=== PATIENT | female | born 1985 | race Caucasian/White ===

== ENCOUNTER 2021-12-09 11:31 | Outpatient (CLI) | payer BC ==
--- NOTE | 2021-12-10 10:16 | Mammography Report ---
BILATERAL DIGITAL SCREENING MAMMOGRAM 3D/2D: 12/09/2021 CLINICAL: Family history of breast cancer. Baseline exam. Routine screening. No prior exams were available for comparison. Both breasts are heterogeneously dense, which may obscure small masses (category c / 51-75% glandula r tissue). No significant masses, calcifications, or other findings are seen in either breast. IMPRESSION: BENIGN Breast MRI screening is recommended for this patient at elevated lifetime risk. There is no mammographic evidence of malignancy. A 1 year screening mammogram is recommended. Based on Tyrer-Cuzick model (a risk assessment model), the patient's lifetime risk is 30.6% and her 1 0 year risk is 3.4%. If a patient has an elevated risk, a more comprehensive evaluation should be con sidered and/or a referral to a genetic counselor. The [employer], [employer], and NCCN Guidelines advise the consideration of Breast MRI as an adjunct to screening mammog lisa in patients whose "Lifetime risk to develop breast cancer" is 20% or higher. This exam was interpreted at Station ID: [id number]. NOTE: For mammograms, a report in lay terms will be sent to the patient. Approximately 15% of breast malignancies will not be visualized mammographically. In the management of a palpable breast mass, a negative mammogram must not discourage biopsy of a clinically suspicious lesion. Electronically Signed By: Clifford witt/laron:12/09/2021 13:11:00 ACR BI-RADS Category 2: Benign Finding(s) 3342F PARENCHYMAL PATTERN: (D) - The breast(s) demonstrate(s) heterogeneously dense fibroglandular parenchy ma. BI-RADS CATEGORY: (2) - 2 RECOMMENDATION: (ANNUAL) - Recommend routine annual screening mammography. [id number] 1 year screening LATERALITY: (B)
== END 2021-12-09 11:32 | disposition home or self-care (01) ==
LOC: DI.N 11:31
PROVIDERS: ATTEND Nurse Practitioner Family
DX: Z12.31 Encounter for screening mammogram for malignant neoplasm of breast (principal); Z80.3 Family history of malignant neoplasm of breast

== ENCOUNTER 2022-06-17 08:00 | Outpatient (CLI) | payer BC ==
[2022-06-17 15:54] LABS: BILIRUBIN,URINE NEGATIVE (NEGATIVE); GLUCOSE, URINE (UA) NEGATIVE (NEGATIVE); KETONES,URINE (UA) NEGATIVE (NEGATIVE); LEUKOCYTE ESTERASE, URINE NEGATIVE (NEGATIVE); NITRITE,URINE NEGATIVE (NEGATIVE); OCCULT BLOOD,URINE NEGATIVE (NEGATIVE); PROTEIN,URINE NEGATIVE (NEGATIVE); UROBILINOGEN,URINE 0.2 (NORMAL) E.U./dL (NORMAL)
[2022-06-17 15:57] LABS: CLARITY,URINE CLEAR (CLEAR)
[2022-06-17 16:03] LABS: BACTERIA,URINE Rare /HPF (None Seen); RBC,URINE 0-5 /HPF (0-5); SQUAMOUS EPITHELIAL CELL,UR MOD Squamous (<= Few); WBC,URINE 0-3 /HPF (0-5)
== END 2022-06-17 23:59 | disposition home or self-care (01) ==
LOC: LAB.WC 08:00
PROVIDERS: ATTEND Obstetrics & Gynecology
DX: Z32.01 Encounter for pregnancy test, result positive (principal)
CPT/HCPCS: 81001; 87086

== ENCOUNTER 2022-07-06 12:27 | Outpatient (CLI) | payer BC ==
[2022-07-06 13:09] LABS: BASOPHILS % (AUTO) 0.3 %; EOSINOPHILS % (AUTO) 0.3 %; HCT - HEMATOCRIT 38.9 % (37.0-47.0); HGB - HEMOGLOBIN 13.3 g/dL (12.0-16.0); LYMPHOCYTES # (AUTO) 1.9 10^3/uL (1.5-3.5); LYMPHOCYTES % (AUTO) 20.7 %; MEAN CORPUSCULAR HEMOGLOBIN 29.7 pg (27.0-31.0); MEAN CORPUSCULAR HGB CONC 34.2 g/dL (32.0-36.0); MEAN CORPUSCULAR VOLUME 86.8 fL (81.0-99.0); MEAN PLATELET VOLUME 9.5 fL (7.9-10.8); MONOCYTES # (AUTO) 0.3 10^3/uL (0.0-1.0); MONOCYTES % (AUTO) 3.5 %; NEUTROPHILS # (AUTO) 6.7 10^3/uL (1.5-6.6); NEUTROPHILS % (AUTO) 75.1 %; PLT - PLATELET COUNT 286 10^3/uL (130-450); RED BLOOD COUNT 4.48 10^6/uL (4.20-5.40); RED CELL DISTRIBUTION WIDTH 11.9 % (12.0-15.0); WHITE BLOOD COUNT 8.9 x10^3/uL (4.8-10.8)
--- NOTE | 2022-07-06 19:34 | Ultrasound Report ---
PROCEDURE: OB First Trimester w/TV INDICATIONS: POSITIVE TEST OUTSIDE/PRIOR DATING DATA: Last menstrual period (LMP): 05/06/2022. LMP-based estimated date of delivery (FABIEN): 02/10/2023. First dating scan (date and location): 07/06/2022. Estimated date of delivery (FABIEN) from first dating scan: 02/07/2023. TECHNIQUE: Real-time scanning was performed of the fetus and maternal pelvic organs, with image documentation. Endovaginal scanning was also performed to better visualize the fetus and maternal ovaries. COMPARISON: None FINDINGS: Single living intrauterine . Embryo: Java-rump length of 2.4 cm corresponding to gestational age of 9 weeks 1 day. Heart rate: 176 bpm Measurement variability in dating: +/- 4 weeks by LMP, +/- 7 days by mean sac diameter (use before 6 weeks gestation if crown-rump length not able to be measured), +/- 5 days by crown-rump length (6-12 weeks gestation). Maternal organs: Ovaries are unremarkable. Left corpus luteum. A 3.8 cm fibroid is present at the ut erine fundus. IMPRESSION: Single living intrauterine with gestational age of 9 weeks 1 day by crown-rump length, conc ordant with clinical dates. Reviewed by: Manuel Lizama MD on 07/06/2022 7:33 PM PDT Approved by: Manuel Lizama MD on 07/06/2022 7:33 PM PDT Station ID: [id number]
[2022-07-07 07:10] LABS: RPR Non Reactive (Non Reactive)
[2022-07-07 08:10] LABS: HBsAG SCREEN Negative (Negative)
[2022-07-07 09:09] LABS: HCV AB Non Reactive (Non Reactive); HIV SCREEN 4TH GENERATION Non Reactive (Non Reactive)
[2022-07-07 11:10] LABS: VARICELLA-ZOSTER AB IGG 1786 index (Immune >165)
== END 2022-07-06 12:28 | disposition home or self-care (01) ==
LOC: DI 12:27
PROVIDERS: ATTEND Obstetrics & Gynecology
DX: Z36.89 Encounter for other specified antenatal screening (principal)
CPT/HCPCS: 36415; 85025; 86592; 86762; 86787; 86803; 86850; 86900; 86901; 87340; 87389

== ENCOUNTER 2022-07-22 08:00 | Outpatient (CLI) | payer BC ==
[2022-07-23 00:13] LABS: CHLAMYDIA TRACHOMATIS DNA NEGATIVE (NEGATIVE); NEISSERIA GONORRHOEAE DNA NEGATIVE (NEGATIVE); TRICHOMONAS VAGINALIS DNA NEGATIVE (NEGATIVE)
== END 2022-07-22 23:59 | disposition home or self-care (01) ==
LOC: LAB.WC 08:00
PROVIDERS: ATTEND Obstetrics & Gynecology
DX: Z11.3 Encounter for screening for infections with a predominantly sexual mode of transmission (principal)
CPT/HCPCS: 87491; 87591; 87661

== ENCOUNTER 2022-07-22 12:48 | Outpatient (CLI) | payer BC ==
[2022-07-22 13:15] LABS: CREATININE,URINE 120.2 mg/dL; PROTEIN/CREATININE RATIO,URINE 0.1 (<=0.2)
[2022-07-22 13:18] LABS: ALBUMIN/GLOBULIN RATIO 1.4 (1.0-2.2); BILIRUBIN,TOTAL 0.6 mg/dL (0.2-1.0); CALCIUM 9.1 mg/dL (8.5-10.3); CREATININE 0.4 mg/dL (0.4-1.0); POTASSIUM 3.9 mmol/L (3.5-5.0); TOTAL PROTEIN 6.9 g/dL (6.7-8.2); URIC ACID 3.1 mg/dL (2.6-7.2)
[2022-07-22 21:05] LABS: ESTIMATED AVERAGE GLUCOSE 94 mg/dL (70-100); HEMOGLOBIN A1c% 4.9 % (4.27-6.07)
== END 2022-07-22 12:49 | disposition home or self-care (01) ==
LOC: LAB 12:48
PROVIDERS: ATTEND Obstetrics & Gynecology
DX: O09.511 Supervision of elderly primigravida, first trimester (principal); Z87.59 Personal history of other complications of pregnancy, childbirth and the puerperium; Z86.32 Personal history of gestational diabetes
CPT/HCPCS: 36415; 80053; 82570; 83036; 84156; 84550

== ENCOUNTER 2022-09-21 08:51 | Outpatient (CLI) | payer BC ==
--- NOTE | 2022-09-22 13:04 | Ultrasound Report ---
PROCEDURE: OB Detailed Eval INDICATIONS: SUPERVISION OF OUTSIDE/PRIOR DATING DATA: Last menstrual period (LMP): 05/06/2022. LMP-based estimated date of delivery (FABIEN): 03/09/2023. First dating scan (date and location): 07/06/2022 at [facility]. Estimated date of delivery (FABIEN) from first dating scan: 02/07/2023 . The below data below was generated using the FABIEN of 02/10/2023 TECHNIQUE: Real-time scanning was performed of the fetus, with image documentation and biometric measurements. COMPARISON: None. FINDINGS: General: A single living intrauterine gestation is present. Presentation: Variable Placenta: Placental position is posterior, without previa. Amniotic fluid index: 13.6 cm; largest pocket 3.4 cm. heart rate: 150 beats per minute. Maternal cervical canal: Closed; 4.7 cm long; normal length is 2.5 cm or more. biometrics: Biparietal diameter: 19 weeks 1 day Head circumference: 19 weeks 3 days Abdominal circumference: 20 weeks 2 days Femur length: 20 weeks 0 day Estimated gestational age from initial scan: 19 weeks 5 days Composite gestational age from present scan: 19 weeks 4 days Estimated weight and percentile: 328.9 g; 65.4% Measurement variability in biometric dating: +/- 10 days from 12-20 weeks gestation, +/- 2 weeks from 20-30 weeks gestation, +/- 3 weeks at 30 weeks gestation or later. Anatomic survey: Neuro: Ventricles are normal at less than 10 mm. Cisterna magna is normal at 3-11 mm. Cerebellum i s normal in size and morphology. Nuchal skin fold: Normal at less than 6 mm between 14 and 20 weeks gestational age. Face: Nose and lips, facial profile are normal. Spine: No evidence for spina bifida. Heart: 4-chambered heart is present, with normal ventricular outflow tracts. Diaphragm: Diaphragm is intact. Stomach: Left-sided stomach is present. Kidneys: No hydronephrosis. Normal is less than 5 mm in 2nd trimester, less than 7 mm in 3rd trimester. Cord: 3 vessel cord has orthotopic insertion. Bladder: Normal in size. Extremities: All 4 extremities are visualized. IMPRESSION: 1. A single living IUP redemonstrated. There is appropriate interval growth. 2. Normal anatomic survey. Reviewed by: Jf Garcia MD on 09/22/2022 1:03 PM PDT Approved by: Jf Garcia MD on 09/22/2022 1:03 PM PDT Station ID: [id number]
== END 2022-09-21 08:52 | disposition home or self-care (01) ==
LOC: DI 08:51
PROVIDERS: ATTEND Obstetrics & Gynecology
DX: O09.512 Supervision of elderly primigravida, second trimester (principal); Z3A.19 19 weeks gestation of pregnancy

== ENCOUNTER 2022-10-31 13:08 | Outpatient (CLI) | payer BC ==
[2022-10-31 14:19] LABS: HCT - HEMATOCRIT 36.5 % (37.0-47.0); HGB - HEMOGLOBIN 12.5 g/dL (12.0-16.0); MEAN CORPUSCULAR HEMOGLOBIN 30.9 pg (27.0-31.0); MEAN CORPUSCULAR HGB CONC 34.2 g/dL (32.0-36.0); MEAN CORPUSCULAR VOLUME 90.1 fL (81.0-99.0); MEAN PLATELET VOLUME 9.4 fL (7.9-10.8); RED BLOOD COUNT 4.05 10^6/uL (4.20-5.40); RED CELL DISTRIBUTION WIDTH 12.3 % (12.0-15.0); WHITE BLOOD COUNT 9.7 x10^3/uL (4.8-10.8)
== END 2022-10-31 13:09 | disposition home or self-care (01) ==
LOC: LAB 13:08
PROVIDERS: ATTEND Obstetrics & Gynecology
DX: O09.522 Supervision of elderly multigravida, second trimester (principal); Z3A.22 22 weeks gestation of pregnancy
CPT/HCPCS: 36415; 82950; 85027

== ENCOUNTER 2022-11-04 09:59 | Outpatient (CLI) | payer BC ==
[2022-11-04 10:27] LABS: GTT GLUCOSE,FASTING 78 mg/dL (74-109)
== END 2022-11-04 10:00 | disposition home or self-care (01) ==
LOC: LAB 09:59
PROVIDERS: ATTEND Obstetrics & Gynecology
DX: R73.02 Impaired glucose tolerance (oral) (principal)
CPT/HCPCS: 36415; 82951; 82952

== ENCOUNTER 2022-12-16 13:58 | Outpatient (CLI) | payer BC | END 2022-12-16 13:59 | disposition home or self-care (01) | LOC: NS 13:58 | PROVIDERS: ATTEND Nurse Practitioner | DX: Z53.9 Procedure and treatment not carried out, unspecified reason (principal) ==

== ENCOUNTER 2023-01-14 10:55 | Outpatient (CLI) | payer BC ==
[2023-01-14 11:51] LABS: BASOPHILS % (AUTO) 0.3 %; EOSINOPHILS % (AUTO) 0.3 %; HCT - HEMATOCRIT 39.1 % (37.0-47.0); HGB - HEMOGLOBIN 13.4 g/dL (12.0-16.0); LYMPHOCYTES # (AUTO) 1.7 10^3/uL (1.5-3.5); LYMPHOCYTES % (AUTO) 17.9 %; MEAN CORPUSCULAR HEMOGLOBIN 30.9 pg (27.0-31.0); MEAN CORPUSCULAR HGB CONC 34.3 g/dL (32.0-36.0); MEAN CORPUSCULAR VOLUME 90.1 fL (81.0-99.0); MEAN PLATELET VOLUME 9.1 fL (7.9-10.8); MONOCYTES # (AUTO) 0.4 10^3/uL (0.0-1.0); MONOCYTES % (AUTO) 3.8 %; NEUTROPHILS # (AUTO) 7.2 10^3/uL (1.5-6.6); NEUTROPHILS % (AUTO) 77.2 %; PLT - PLATELET COUNT 215 10^3/uL (130-450); RED BLOOD COUNT 4.34 10^6/uL (4.20-5.40); RED CELL DISTRIBUTION WIDTH 13.2 % (12.0-15.0); WHITE BLOOD COUNT 9.3 x10^3/uL (4.8-10.8)
[2023-01-14 12:03] LABS: CREATININE,URINE 67.7 mg/dL; PROTEIN/CREATININE RATIO,URINE 0.2 (<=0.2)
[2023-01-14 12:04] LABS: ALBUMIN 3.8 g/dL (3.2-5.5); ALBUMIN/GLOBULIN RATIO 1.5 (1.0-2.2); BILIRUBIN,TOTAL 0.5 mg/dL (0.2-1.0); CALCIUM 8.8 mg/dL (8.5-10.3); CREATININE 0.5 mg/dL (0.6-1.3); POTASSIUM 3.5 mmol/L (3.5-4.5); TOTAL PROTEIN 6.3 g/dL (6.4-8.9); URIC ACID 5.1 mg/dL (2.3-6.6)
[2023-01-14 12:11] VITALS: BP 140/86; O2SAT 99
[2023-01-14 13:20] LABS: ESTIMATED AVERAGE GLUCOSE 88 mg/dL (70-100); HEMOGLOBIN A1c% 4.7 % (4.27-6.07)
--- NOTE | 2023-01-14 22:29 | PROCEDURE REPORT ---
- HPI Diagnosis/Indication for NST: Gestational Diabetes Current EDU 02/10/23 Gestation 36 Weeks and 1 Days 2 Para 1 Vital Signs Temperature 98.1 F 01/14/23 11:05 Heart Rate 103 H 01/14/23 11:05 Respiratory Rate 14 01/14/23 11:05 Blood Pressure 136/90 H 01/14/23 11:05 Temperature 98.1 F 01/14/23 11:10 Heart Rate 103 H 01/14/23 11:10 Respiratory Rate 14 01/14/23 11:10 Blood Pressure 140/86 H 01/14/23 11:27 O2 Saturation 99 01/14/23 11:10 If not protocol: Oxygen Flow, liters/minute - NST Procedure NST Procedure Start Date 01/14/23 Start Time 11:06 Stop Time 11:28 Vibroacoustic Stimulation Used No Patient States Movement Yes borderline bp. labs done and normal. nst reviewed baseline 130. + acels. no decles. reactive. plan: bp checks at home. continue vists, nsts as planned.
== END 2023-01-14 11:54 | disposition home or self-care (01) ==
LOC: WFO 10:55 → FBP 10:57 → WFO 11:54
PROVIDERS: ATTEND Obstetrics & Gynecology
DX: O24.419 Gestational diabetes mellitus in pregnancy, unspecified control (principal); Z3A.36 36 weeks gestation of pregnancy
CPT/HCPCS: 36415; 59025; 80053; 82570; 83036; 84156; 84550; 85025

== ENCOUNTER 2023-01-16 08:00 | Outpatient (CLI) | payer BC | END 2023-01-16 23:59 | disposition home or self-care (01) | LOC: LAB.WC 08:00 | PROVIDERS: ATTEND Nurse Practitioner | DX: Z36.85 Encounter for antenatal screening for Streptococcus B (principal) | CPT/HCPCS: 87797 ==

== ENCOUNTER 2023-01-18 17:54 | Outpatient (CLI) | payer BC ==
[2023-01-18 18:12] VITALS: BP 137/86
[2023-01-18 18:57] VITALS: O2SAT 99
--- NOTE | 2023-01-25 20:02 | PROCEDURE REPORT ---
- HPI Diagnosis/Indication for NST: Gestational Diabetes Current EDU 02/11/23 Gestation 36 Weeks and 4 Days 2 Para 1 Vital Signs Temperature 98.4 F 01/18/23 18:06 Heart Rate 93 01/18/23 18:06 Respiratory Rate 18 01/18/23 18:06 Blood Pressure 137/86 H 01/18/23 18:06 O2 Saturation 99 01/18/23 18:06 Temperature 98.4 F 01/18/23 18:06 Heart Rate 93 01/18/23 18:06 Respiratory Rate 18 01/18/23 18:06 Blood Pressure 137/86 H 01/18/23 18:06 O2 Saturation 99 01/18/23 18:06 If not protocol: Oxygen Flow, liters/minute - NST Procedure NST Procedure Start Date 01/18/23 Start Time 18:05 Stop Time 18:32 Patient States Movement Yes 37w5d. nst for GDM on Metfromin. no decles. moderate variability. + acels. baseline wnl. assessment reactive nst.
== END 2023-01-18 18:35 | disposition home or self-care (01) ==
LOC: WFO 17:54 → FBP 17:55 → WFO 18:35
PROVIDERS: ATTEND Obstetrics & Gynecology
DX: O24.415 Gestational diabetes mellitus in pregnancy, controlled by oral hypoglycemic drugs (principal); Z3A.36 36 weeks gestation of pregnancy
CPT/HCPCS: 59025

== ENCOUNTER 2023-01-18 18:35 | Outpatient (CLI) | payer BC ==
--- NOTE | 2023-01-19 12:21 | Ultrasound Report ---
PROCEDURE: OB Biophysical Profile INDICATIONS: GESTATIONAL DIABETES OUTSIDE/PRIOR DATING DATA: Last menstrual period (LMP): 05/06/2022. LMP-based estimated date of delivery (FABIEN): 02/10/2023. First dating scan (date and location): 07/06/2022. Estimated date of delivery (FABIEN) from first dating scan: 02/10/2023. The below data below was generated using the clinical FABIEN of 02/10/2023 TECHNIQUE: Real-time scanning was performed of the fetus, with image documentation and biometric andrea surements. Biophysical profile was also obtained. Endovaginal scanning: None COMPARISON: 10/21/2022 FINDINGS: General: A single living intrauterine gestation is present. Presentation: Vertex Placenta: Placental position is posterior, without previa. Amniotic fluid index: 12.3 cm, normal for gestational age. heart rate: 162 beats per minute. Maternal cervical canal: Not well visualized, but closed biometrics: Estimated gestational age from initial scan: 36 week 5 day Measurement variability in biometric dating: +/- 10 days from 12-20 weeks gestation, +/- 2 weeks from 20-30 weeks gestation, +/- 3 weeks at 30 weeks gestation or later. Biophysical profile: Tone: 2 points. Movement: 2 points. Respiration: 2 points. Largest pocket of fluid: 2 points. Umbilical artery Doppler: 2.4, 2.37, 2.2 IMPRESSION: Single live intrauterine consistent with 36 week 5 day gestation Biophysical profile score 8 out of 8 Reviewed by: Toi Edgar MD on 01/19/2023 11:20 AM TRAMAINE Approved by: Toi Edgar MD on 01/19/2023 11:20 AM AKRUTH Station ID: [id number]
== END 2023-01-18 18:36 | disposition home or self-care (01) ==
LOC: DI 18:35
PROVIDERS: ATTEND Obstetrics & Gynecology
DX: O24.414 Gestational diabetes mellitus in pregnancy, insulin controlled (principal); Z3A.36 36 weeks gestation of pregnancy

== ENCOUNTER 2023-01-27 13:21 | Outpatient (CLI) | payer BC ==
[2023-01-27 13:40] VITALS: BP 142/83; O2SAT 99
--- NOTE | 2023-01-27 14:21 | PROVIDER PROGRESS NOTE ---
- HPI Current : Vital Signs Temperature 98.2 F 01/27/23 13:30 Heart Rate 98 01/27/23 13:30 Respiratory Rate 17 01/27/23 13:30 Blood Pressure 143/87 H 01/27/23 13:30 O2 Saturation 99 01/27/23 13:30 Temperature 98.2 F 01/27/23 13:30 Heart Rate 98 01/27/23 13:30 Respiratory Rate 17 01/27/23 13:30 Blood Pressure 142/83 H 01/27/23 13:36 O2 Saturation 99 01/27/23 13:30 If not protocol: Oxygen Flow, liters/minute - Procedures OB Procedure Performed: NST Diagnosis/Indication for NST: Gestational Diabetes - Plan Plan: Patient is a 37-year-old -0-0-1 at 38 weeks 0 days gestation here for scheduled NST. NST Performed 01/27/2023 NST Read 01/27/2023 FHT: 135 bpm baseline, moderate variability, accelerations present, no decelerations. Reactive NST [place]: Quiescent Diagnosis 38 weeks gestation A2 gestational diabetes mellitus with oral antihyperglycemics Elevated blood pressure, without the diagnosis of hypertension -Mildly elevated blood pressures. CBC, CMP, protein creatinine ratio ordered. We will follow-up as an outpatient. Continue with twice-weekly NST.
[2023-01-27 14:40] LABS: BASOPHILS % (AUTO) 0.2 %; EOSINOPHILS # (AUTO) 0.1 10^3/uL (0.0-0.7); EOSINOPHILS % (AUTO) 0.6 %; HCT - HEMATOCRIT 37.2 % (37.0-47.0); HGB - HEMOGLOBIN 12.9 g/dL (12.0-16.0); LYMPHOCYTES # (AUTO) 1.4 10^3/uL (1.5-3.5); LYMPHOCYTES % (AUTO) 17.2 %; MEAN CORPUSCULAR HGB CONC 34.7 g/dL (32.0-36.0); MEAN CORPUSCULAR VOLUME 89.4 fL (81.0-99.0); MEAN PLATELET VOLUME 9.3 fL (7.9-10.8); MONOCYTES # (AUTO) 0.3 10^3/uL (0.0-1.0); MONOCYTES % (AUTO) 3.6 %; NEUTROPHILS # (AUTO) 6.3 10^3/uL (1.5-6.6); NEUTROPHILS % (AUTO) 77.9 %; PLT - PLATELET COUNT 234 10^3/uL (130-450); RED BLOOD COUNT 4.16 10^6/uL (4.20-5.40); RED CELL DISTRIBUTION WIDTH 13.3 % (12.0-15.0); WHITE BLOOD COUNT 8.1 x10^3/uL (4.8-10.8)
[2023-01-27 15:01] LABS: CREATININE,URINE 59.1 mg/dL; PROTEIN/CREATININE RATIO,URINE 0.2 (<=0.2)
[2023-01-27 15:03] LABS: ALBUMIN 3.7 g/dL (3.2-5.5); ALBUMIN/GLOBULIN RATIO 1.7 (1.0-2.2); BILIRUBIN,TOTAL 0.4 mg/dL (0.2-1.0); CALCIUM 9.2 mg/dL (8.5-10.3); CREATININE 0.5 mg/dL (0.6-1.3); POTASSIUM 3.6 mmol/L (3.5-4.5); TOTAL PROTEIN 5.9 g/dL (6.4-8.9)
== END 2023-01-27 14:35 | disposition home or self-care (01) ==
LOC: FBP 13:21 → WFO 13:21
PROVIDERS: ATTEND Obstetrics & Gynecology
DX: O24.415 Gestational diabetes mellitus in pregnancy, controlled by oral hypoglycemic drugs (principal); O99.891 Other specified diseases and conditions complicating pregnancy; R03.0 Elevated blood-pressure reading, without diagnosis of hypertension; Z3A.38 38 weeks gestation of pregnancy
CPT/HCPCS: 36415; 59025; 80053; 82570; 84156; 85025

== ENCOUNTER 2023-01-30 15:45 | Inpatient (IN) | payer BC ==
--- NOTE | 2023-01-30 16:32 | HISTORY & PHYSICAL EXAMINATION ---
Admit History - Visit Reason Visit Reason: Other (gestational hypertension) - : 2 Parity: 1 Care: positive: [facility] Risk/History: positive: Pre-eclampsia Complications This : positive: Gestational diabetes, induced HTN - Mother's Labs Mother's Blood Type: positive: B Mother's RH: positive: Positive GBS: positive: Group B Step Negative - Other Maternal History Other Maternal History: Patient is a 37-year-old -0-0-1 presenting at 38 weeks and 3 days in the office with elevated blood pressures. Induction of labor was recommended at that time. Patient was sent to labor and delivery for further evaluation. At labor delivery blood pressures continue to be elevated. Discussed risk, benefits, alternatives of induction of labor secondary to gestational hypertension. Patient has history of preeclampsia with previous . This was also complicated by gestational diabetes for which she was on metformin. - HPI Vital Signs Temperature 97.8 F 01/30/23 15:50 Heart Rate 81 01/30/23 15:50 Respiratory Rate 18 01/30/23 15:50 Blood Pressure 151/91 H 01/30/23 15:50 Temperature 97.8 F 01/30/23 15:50 Heart Rate 81 01/30/23 15:50 Respiratory Rate 18 01/30/23 15:50 Blood Pressure 167/99 H 01/30/23 16:20 O2 Saturation If not protocol: Oxygen Flow, liters/minute - NST Procedure NST Procedure Start Time 13:30 Stop Time 14:18 38+3 gestational hypertension, gestational diabetes 135, Moderate variability, positive accelerations, negative decelerations. Reactive NST. Meds/Allgy - Allergies Allergies/Adverse Reactions: Allergies Allergy/AdvReac Type Severity Reaction Status Date / Time No Known Drug Allergies Allergy Verified 01/14/23 11:01 Review of Systems - Cardiovascular Cariovascular: denies: Chest pain - Respiratory Respiratory: denies: SOB at rest - Gastrointestinal Gastrointestinal: denies: Abdominal pain - All Other Systems All Other Systems: reports: Reviewed and negative - Other Findings Other Findings: Positive movement. Denies vaginal bleeding, contractions, leakage of fluid. Physical - Abdominal Exam Vital Signs: Temp Pulse Resp BP Pulse Ox O2 Flow Rate 97.8 F 81 18 167/99 H 01/30/23 15:50 01/30/23 15:50 01/30/23 15:50 01/30/23 16:20 Contraction Frequency (min/apart): none Uterine Resting Tone: positive: Soft - Monitoring Strip Review: positive: Category I - Presentation Presentation: positive: Vertex - Vaginal Exam Membranes: positive: Membranes intact Plan for Labor - Plan For Labor I expect patient to be DC'd or transferred within 96 hours.: Yes Plan for Labor: 1. Gestational hypertension -Keep SBP<160, DBP <110 -Discussed preeclamptic lab work. If patient has severe range blood pressures and/or abnormal blood work discussed magnesium sulfate for seizure prophylaxis. 2. wellbeing: reassuring 3. Induction: Discussed methods of induction and risk, benefits, and a lternatives for induction of labor. Patient verbalizes understanding and all questions answered. 4. Rubella non-immune: vaccine
[2023-01-30] MEDS ORDERED: LABETALOL 20 MG/4 ML SYRINGE IVP PRN ×3 (16:37)
[2023-01-30] MEDS ORDERED: miSOPROStoL 200 MCG TABLET BC PRN (16:37)
[2023-01-30] MEDS ORDERED: OXYTOCIN 10 UNIT/ML VIAL IM PRN (16:37)
[2023-01-30] MEDS ORDERED: OXYTOCIN/SODIUM CHLORIDE 500 ML IV PRN (16:37)
[2023-01-30] MEDS ORDERED: TRANEXAMIC ACID IN NACL 1,000 MG/100 ML BAG IV PRN (16:37)
[2023-01-30] MEDS ORDERED: NIFEdipine 10 MG CAPSULE PO PRN (16:37)
[2023-01-30] MEDS ORDERED: hydrALAZINE INJ 20 MG/ML VIAL IVP PRN ×2 (16:37)
[2023-01-30] MEDS ORDERED: SODIUM CHLORIDE FLUSH 0.9% 10 ML SYRINGE IVP PRN (16:37)
[2023-01-30] MEDS ORDERED: lidocaine 1% 20 ML MDV ID PRN (16:37)
[2023-01-30] MEDS ORDERED: LACTATED RINGERS 1,000 ML IV PRN (16:37)
[2023-01-30] MEDS ORDERED: CARBOPROST TROMETHAMINE 250 MCG/ML AMP IM PRN (16:37)
[2023-01-30] MEDS ORDERED: miSOPROStoL 200 MCG TABLET PR PRN (16:37)
[2023-01-30] MEDS ORDERED: fentaNYL 100 MCG/2 ML VIAL IVP PRN (16:37)
[2023-01-30] MEDS ORDERED: miSOPROStoL 100 MCG TABLET BC SCH (17:00)
[2023-01-30] MEDS ORDERED: OXYTOCIN/SODIUM CHLORIDE 500 ML IV SCH (17:00)
[2023-01-30 17:05] LABS: HCT - HEMATOCRIT 38.1 % (37.0-47.0); HGB - HEMOGLOBIN 13.3 g/dL (12.0-16.0); MEAN CORPUSCULAR HEMOGLOBIN 30.9 pg (27.0-31.0); MEAN CORPUSCULAR HGB CONC 34.9 g/dL (32.0-36.0); MEAN CORPUSCULAR VOLUME 88.6 fL (81.0-99.0); MEAN PLATELET VOLUME 9.7 fL (7.9-10.8); RED BLOOD COUNT 4.3 10^6/uL (4.20-5.40); RED CELL DISTRIBUTION WIDTH 13.3 % (12.0-15.0); WHITE BLOOD COUNT 9.7 x10^3/uL (4.8-10.8)
[2023-01-30 17:20] LABS: ALBUMIN 3.8 g/dL (3.2-5.5); ALBUMIN/GLOBULIN RATIO 1.3 (1.0-2.2); BILIRUBIN,TOTAL 0.4 mg/dL (0.2-1.0); CALCIUM 9.5 mg/dL (8.5-10.3); CREATININE 0.5 mg/dL (0.6-1.3); POTASSIUM 3.7 mmol/L (3.5-4.5); TOTAL PROTEIN 6.7 g/dL (6.4-8.9)
[2023-01-30 17:49] LABS: CREATININE,URINE 37.6 mg/dL; PROTEIN/CREATININE RATIO,URINE 0.1 (<=0.2)
--- NOTE | 2023-01-30 18:52 | ANESTHESIA ---
Pre-Anesthesia VS, & Labs - Diagnosis labor induction - Procedure labor epidural Vital Signs: Temp Pulse Resp BP Pulse Ox O2 Flow Rate 36.8 C 77 18 153/83 H 01/30/23 17:07 01/30/23 17:07 01/30/23 17:07 01/30/23 17:07 Height: 5 ft 5 in Weight (kg): 81.193 kg Body Mass Index: 29.7 BMI Classification: Overweight - NPO Other - Is Patient ?: Yes - Lab Results Current Lab Results: Laboratory Tests 01/30/23 17:57: Blood Type B POSITIVE, Antibody Screen NEGATIVE 01/30/23 17:13: Blood Type Cancelled, Antibody Screen Cancelled 01/30/23 14:40: Lactate Dehydrogenase 135 L 01/30/23 14:40: Uric Acid 5.0 01/30/23 14:40: Sodium 137, Potassium 3.7, Chloride 104, Carbon Dioxide 25, Anion Gap 8.0, BUN 12, Creatinine 0.5 L, Estimated GFR (MDRD) 138, Glucose 82, Calcium 9.5, Total Bilirubin 0.4, AST 13, ALT 8 L, Alkaline Phosphatase 144 H, Total Protein 6.7, Albumin 3.8, Globulin 2.9, Albumin/Globulin Ratio 1.3 01/30/23 14:40: WBC 9.7, RBC 4.30, Hgb 13.3, Hct 38.1, MCV 88.6, MCH 30.9, MCHC 34.9, RDW 13.3, Plt Count 250, MPV 9.7 Fish Bones: 01/30/23 14:40 01/30/23 14:40 Home Medications and Allergies Active Medications Carboprost Tromethamine (Carboprost Tromethamine 250 Mcg/Ml Amp) 250 mcg IM .ONCE PRN PRN Reason: Hemorrhage Fentanyl (Fentanyl 100 Mcg/2 Ml Vial) 50 mcg IVP Q1H PRN PRN Reason: Severe Pain (score 7-10) Hydralazine HCl (Hydralazine Inj 20 Mg/Ml Vial) 5 - 10 mg IVP Q20M PRN; Protocol PRN Reason: SBP> or= 160 OR DBP> or= 110 Hydralazine HCl (Hydralazine Inj 20 Mg/Ml Vial) 10 mg IVP .ONCE PRN; Protocol PRN Reason: SBP> or= 160 OR DBP> or= 110 Lactated Ringer's (Lr) 500 mls @ 999 mls/hr IV PRN PRN PRN Reason: distress Oxytocin/Sodium Chloride (Pitocin/Sodium Chloride) 500 mls @ 999 mls/hr IV PRN PRN; Protocol PRN Reason: POST- HEMORR PREVENTION Tranexamic Acid (Tranexamic 1,000 Mg/100ml-Nacl) 1,000 mg in 100 mls @ 600 mls/hr IV Q30M PRN PRN Reason: EBL >1200mL and within 3hr Lactated Ringer's (Lr) 1,000 mls @ 125 mls/hr IV .Q8H NEISHA Oxytocin/Sodium Chloride (Pitocin/Sodium Chloride) 500 mls @ 1 mls/hr IV TITR NEIHSA; Protocol Labetalol HCl (Labetalol 20 Mg/4 Ml Syringe) 20 - 80 mg IVP Q10M PRN; Protocol PRN Reason: SBP> or= 160 OR DBP> or= 110 Labetalol HCl (Labetalol 20 Mg/4 Ml Syringe) 20 mg IVP .ONCE PRN; Protocol PRN Reason: SBP> or= 160 OR DBP> or= 110 Labetalol HCl (Labetalol 20 Mg/4 Ml Syringe) 20 - 40 mg IVP Q10M PRN; Protocol PRN Reason: SBP> or= 160 OR DBP> or= 110 Lidocaine HCl (Lidocaine 1% 20 Ml Mdv) 20 ml ID .ONCE PRN PRN Reason: PERINEAL REPAIR Stop: 02/02/23 16:37 Misoprostol (Misoprostol 200 Mcg Tablet) 600 mcg BC .ONCE PRN PRN Reason: Hemorrhage Misoprostol (Misoprostol 200 Mcg Tablet) 800 mcg NH .ONCE PRN PRN Reason: Hemorrhage Misoprostol (Misoprostol 100 Mcg Tablet) 25 mcg BC Q4H NEISHA Stop: 01/31/23 13:01 Last Admin: 01/30/23 17:44 Dose: 25 mcg Nifedipine (Nifedipine 10 Mg Capsule) 10 - 20 mg PO Q20M PRN; Protocol PRN Reason: SBP> or= 160 OR DBP> or= 110 Oxytocin (Oxytocin 10 Unit/Ml Vial) 10 unit IM .ONCE PRN PRN Reason: Step One if no IV access. Sodium Chloride (Sodium Chloride Flush 0.9% 10 Ml Syringe) 10 ml IVP PRN PRN PRN Reason: NEEDED PER PROVIDER ORDERS Sodium Chloride (Sodium Chloride Flush 0.9% 10 Ml Syringe) 10 ml IVP Q8H NEISHA Allergies/Adverse Reactions: Allergies Allergy/AdvReac Type Severity Reaction Status Date / Time No Known Drug Allergies Allergy Verified 01/14/23 11:01 Anes History & Medical History - Anesthetic History Anesthesia Complications: reports: No previous complications - Medical History Cardiovascular: reports: Hypertension (gestational) Pulmonary: reports: None Smoking Status: Former smoker History of Cancer?: No - Obstetrical History : 2 Parity: 1 Events: reports: Pre-eclampsia Complications: reports: Gestational diabetes, induced HTN Exam General: Alert, Oriented x3, Cooperative Dental: WNL Mouth Opening: Greater than 4 Fingerbreadths Neck Mobility: Normal Mallampati classification: II Thyromental Distance: greater than 6 cm Respiratory: Lungs clear Cardiovascular: Regular rate Plan Anesthesia Type: Epidural Consent for Procedure(s) Verified and Reviewed: Yes Code Status: Attempt Resuscitation ASA classification: 2-Mild systemic disease Is this case an emergency?: No
--- NOTE | 2023-01-30 21:38 | PROVIDER PROGRESS NOTE ---
Labor Progress Note - Uterine Monitoring Uterine Monitoring Mode: positive: External toco Contraction Frequency (min/apart): irregular Contraction Intensity: positive: Mild - Monitoring Heart Rate Variability: positive: Moderate (6-25 bmp) Accelerations: positive: Present, 15x15 Decelerations: positive: None - Vaginal Exam Dilation (in cm): 1 Effacement (%): 10 Cervical Position: Posterior - Labor Progress Note Labor Progress Note/Additional Text: Patient has received 25 mcg of Cytotec. Will give 50 mcg of Cytotec. Discussed with patient. We will do cervical exam at that time and proceed with either another dose of Cytotec or Pitocin. Reviewed preeclamptic lab work which is within normal limits. wellbeing is reassuring.
[2023-01-30] MEDS: miSOPROStoL 100 MCG TABLET BC SCH (21:48)
[2023-01-31] MEDS: LACTATED RINGERS 1,000 ML IV SCH ×3 (01:15→18:17)
[2023-01-31] MEDS: miSOPROStoL 100 MCG TABLET BC SCH ×2 (01:48→09:11)
[2023-01-31] MEDS ORDERED: OXYTOCIN/SODIUM CHLORIDE 500 ML IV SCH (02:00)
[2023-01-31] MEDS: SODIUM CHLORIDE FLUSH 0.9% 10 ML SYRINGE IVP SCH ×4 (09:09→18:18)
--- NOTE | 2023-01-31 10:49 | PROVIDER PROGRESS NOTE ---
Labor Progress Note - Uterine Monitoring Uterine Monitoring Mode: positive: External toco Contraction Intensity: positive: Mild to moderate - Monitoring Monitor Mode: positive: External ultrasound Accelerations: positive: Present, 15x15 Decelerations: positive: None - Labor Progress Note Labor Progress Note/Additional Text: Patient is status post 25 mcg, 50 mcg, 50 mcg of cytotec. Currently on pitocin. Plan for exam and AROM when able. BPs have been below treatable level. Q2 blood sugar checks in active labor.
--- NOTE | 2023-01-31 12:31 | PROVIDER PROGRESS NOTE ---
Labor Progress Note - Uterine Monitoring Uterine Monitoring Mode: positive: External toco Contraction Intensity: positive: Moderate to strong - Monitoring Monitor Mode: positive: External ultrasound Heart Rate Variability: positive: Moderate (6-25 bmp) Accelerations: positive: Present, 15x15 Decelerations: positive: None - Labor Progress Note Labor Progress Note/Additional Text: SROM with clear fluid. wellbeing is reassuring. I reviewed pain management options.
[2023-01-31] MEDS ORDERED: ROPIVACAINE 0.2% 200 MG/100 ML BAG EP ONE (13:00)
[2023-01-31] MEDS ORDERED: SODIUM CHLORIDE 0.9% 10 ML VIAL IVP ONE (13:32)
[2023-01-31] MEDS ORDERED: fentaNYL 100 MCG/2 ML VIAL ONE (13:32)
--- NOTE | 2023-01-31 14:14 | PROVIDER PROGRESS NOTE ---
Labor Progress Note - Uterine Monitoring Uterine Monitoring Mode: positive: External toco Contraction Frequency (min/apart): 3 Contraction Intensity: positive: Strong Uterine Resting Tone: positive: Soft - Monitoring Monitor Mode: positive: External ultrasound Heart Rate Variability: positive: Moderate (6-25 bmp) Accelerations: positive: Present, 15x15 Decelerations: positive: None - Vaginal Exam Dilation (in cm): 5 Effacement (%): 80 Station: -2 - Labor Progress Note Labor Progress Note/Additional Text: Patient comfortable with epidural. wellbeing reassuring. Currently on Pitocin. Hourly blood sugars secondary to GDM on metformin.
--- NOTE | 2023-01-31 16:08 | DELIVERY NOTE ---
Delivery Note - Labor Labor: positive: Other (Induced by Cytotec, oxytocin) - Delivery Method Delivery Method: positive: Spontaneous vaginal delivery - Cervical Ripening Method Cervical Ripening Method: positive: Misoprostil - Presentation Presentation: positive: Vertex - Nuchal Cord Nuchal Cord: positive: Present - Anesthetic Anesthetic Type: - Amniotic Fluid Description Amniotic Fluid Description: positive: Clear - Episiotomy Type Episiotomy Type: positive: None - Laceration Laceration: positive: None - Delivery Outcome Delivery Outcome: positive: Livebirth - [place] : positive: Placed in direct skin contact with mother, [place] used sex: positive: Female - Cord Cord: positive: 3 vessels - Placenta Placenta: positive: Intact - Estimated Blood Loss Estimated Blood Loss (in cc): 100 - Post Delivery Events Post Delivery Events: positive: No post delivery events - Delivery Comments (Free Text/Narrative) Delivery Comments (Free Text/Narrative): Stage I: Patient is a presenting for induction of labor for gestational hypertension. Patient received 3 doses of misoprostol followed by Pitocin. Spontaneous rupture of membranes with clear fluid. FHTs remained reassuring throughout the first stage. Patient received an epidural for anesthesia. Stage II: Female infant was atraumatcally delivered from ANNE position with nuchal cord, baby delivered through nuchal cord. The anterior shoulder was delivered without difficulty followed by the posterior shoulder and body. was vigorous at delivery. Infant was placed on mom. Cord was doubly clamped and cut.Weight and APGARS pending Stage III: Gentle cord traction. Placenta delivered spontaneously. Placenta was intact. 3 vessel cord. Course: Uterine tone was firm with massage after delivery of the placenta. Oxytocin was administered. Perineum and vaginal were intact. He mostasis was excellent. EBL 100 mL.
[2023-01-31] MEDS ORDERED: DOCUSATE SODIUM 100 MG CAPSULE PO PRN (16:09)
[2023-01-31] MEDS ORDERED: SIMETHICONE CHEW 80 MG TABLET PO PRN (16:09)
[2023-01-31] MEDS ORDERED: LACTATED RINGERS 1,000 ML IV SCH (17:00)
[2023-01-31] MEDS: IBUPROFEN 600 MG TABLET PO SCH (18:34)
[2023-01-31] MEDS: ACETAMINOPHEN 500 MG TABLET PO SCH (18:35)
[2023-02-01] MEDS: IBUPROFEN 600 MG TABLET PO SCH ×4 (00:40→16:20)
[2023-02-01] MEDS: ACETAMINOPHEN 500 MG TABLET PO SCH ×3 (02:40→12:46)
--- NOTE | 2023-02-01 09:53 | PROVIDER PROGRESS NOTE ---
Subjective - Prog Note Date Prog Note Date: 02/01/23 Prog Note Time: 09:51 - Subjective Subjective: Patient is day 1 status postnormal spontaneous vaginal delivery after induction of labor secondary to gestational hypertension. Patient is doing well this morning. She is ambulating, tolerating regular diet, spontaneously voiding. She denies headache, changes in vision, right upper quadrant pain. Lochia = menses. Objective - Vital Signs/Intake & Output Reviewed Vital Signs: Yes Vital Signs: Vital Signs x48h Temp Pulse Resp BP Pulse Ox 02/01/23 08:30 98.1 F 75 16 138/86 H 98 02/01/23 05:28 97.7 F 82 18 139/82 H 99 Intake & Output: Intake & Output 01/29/23 01/30/23 01/31/23 02/01/23 23:59 23:59 23:59 23:59 Intake Total 400 3670.733 Output Total 2565 400 Balance 400 1105.733 -400 - Objective General Appearance: positive: No acute distress Respiratory: positive: Breath sounds nml Cardiovascular: positive: Regular rate & rhythm Abdomen: positive: Non-tender (firm fundus below umbilicus) Extremities: positive: No pedal edema - Lab Results Fish Bones: 01/30/23 14:40 01/30/23 14:40 Other Labs: Lab Results x24hrs 01/31/23 Range/Units 15:09 POC Whole Bld Glucose 112 H (70 - 100) mg/dL Assessment/Plan - Problem List (1) Gestational hypertension Impression: I reviewed signs and symptoms of preeclampsia. Patient has blood pressure cuff at home and I reviewed criteria for calling or coming to labor and delivery. Patient will have close blood pressure follow-up in the office. She had preeclampsia with severe features with previous delivery and was on magnesium sulfate for that delivery.
--- NOTE | 2023-02-01 10:15 | Discharge Plan ---
Discharge Plan Problem Reviewed?: Yes Disposition: Home, Self Care Condition: Good Diet: Regular Activity Restrictions: No Restrictions (Nothing in the vagina for 6 weeks) Additional Instructions or Follow Up instructions: Call for Systolic blood pressure greater than 140 or diastolic blood pressure greater than 190. Present for systolic blood pressure greater than 160 or diastolic blood pressure greater than 110. Call or come in for headache, changes in vision, right upper quadrant pain, increased lower extremity swelling, or any other concerns. No Smoking: If you smoke, Please STOP! Call for help. Follow-up with: Jennifer Garcia ARNP [Primary Care Provider] -
--- NOTE | 2023-02-01 10:16 | DISCHARGE SUMMARY ---
Discharge Summary Admit Date: 01/30/23 Discharge Date: 02/01/23 Discharging Provider: Autumn Condition at Discharge: Good Discharge Disposition: 01 Home, Self Care - DIAGNOSES Admission Diagnoses: Gestational hypertension Discharge Diagnoses with Status of Each Condition: Gestational hypertension Normal spontaneous vaginal delivery - HOSPITAL COURSE Hospital Course: Stage I: Patient is a presenting for induction of labor for gestational hypertension. Patient received 3 doses of misoprostol followed by Pitocin. Spontaneous rupture of membranes with clear fluid. FHTs remained reassuring throughout the first stage. Patient received an epidural for anesthesia. Stage II: Female infant was atraumatcally delivered from ANNE position with nuchal cord, baby delivered through nuchal cord. The anterior shoulder was delivered without difficulty followed by the posterior shoulder and body. was vigorous at delivery. was placed on mom. Cord was doubly clamped and cut.Weight and APGARS pending Stage III: Gentle cord traction. Placenta delivered spontaneously. Placenta was intact. 3 vessel cord. Course: Uterine tone was firm with massage after delivery of the placenta. Oxytocin was administered. Perineum and vaginal were intact. Hemostasis was excellent. EBL 100 mL. Patient had an uncomplicated course. She was counseled on signs and symptoms of preeclampsia. She was given blood pressure parameters to call or come in. She has a blood pressure cuff at home and will have close outpatient follow-up for blood pressure management. - ALLERGIES Allergies/Adverse Reactions: Allergies Allergy/AdvReac Type Severity Reaction Status Date / Time No Known Drug Allergies Allergy Verified 01/14/23 11:01 - PHYSICAL EXAM AT DISCHARGE General Appearance: positive: No acute distress Respiratory: positive: Breath sounds nml Cardiovascular: positive: Regular rate & rhythm Abdomen: positive: Non-tender (Firm fundus below the umbilicus) Extremities: positive: No pedal edema - LABS Result Diagrams: 01/30/23 14:40 01/30/23 14:40
[2023-02-01 16:55] VITALS: BP 132/67; O2SAT 100
--- NOTE | 2023-02-01 17:11 | Labor Flowsheet ---
Labor Flowsheet Datetime Report Generated by CPN: 02/01/2023 17:11 Datetime: 02/01/2023 08:30 VITAL SIGNS NBP Sys/Marsha/Mean (mmHg): 138 : 86 : 96 Pulse: 80 LaborFlag: Labor Datetime: 02/01/2023 00:40 SpO2 (%): 97 Datetime: 01/31/2023 15:48 VAGINAL EXAM Dilatation (cm): 10.0 Effacement (%): 100 Station: 1 Exam by: Dr. Autumn Datetime: 01/31/2023 15:31 Stage of : Labor UTERINE ACTIVITY Monitor Mode: External Frequency (min): 2-3 Quality: Moderate Duration (sec): 60-70 Pattern: Normal: <= 5 Contractions in 10 Minutes Resting Tone (Palpate): Relaxed Pitocin Checklist: At Least 1 Acceleration of 15 bpm x 15 Seconds in 30 Minutes or Adequate Variabi lity; No More than 1 Late Deceleration Occurred in Past 30 Minutes; No More than 2 Variable Decelerat ions > 60 Seconds in Duration and decreasing >60 bpm in 30 minutes; No More than 5 Uterine Contractio ns in 10 Minutes for any 20 Minute Interval; Uterus Palpates Soft between Contractions ASSESSMENT A Monitor Mode: Telemetry FHR Baseline Rate : 145 FHR Baseline Changes: No Baseline Change Variability: Moderate 6-25 bpm Accelerations: 15X15 Decelerations: Variable Oxygen Method: Room Air Epidural Procedure: Completed Datetime: 01/31/2023 14:15 I/O Interventions: Joseph Cath Inserted Datetime: 01/31/2023 14:00 Membrane Status: Ruptured Datetime: 01/31/2023 13:10 ANESTHESIA Anesthesia Plans: Epidural Epidural Procedure Other: Pump Started Datetime: 01/31/2023 13:02 Epidural Positioning: Sitting Datetime: 01/31/2023 12:52 Anesthesia Interview: E Datetime: 01/31/2023 12:47 Anesthesia Comments: call to anes. provider, patient request for epidural Datetime: 01/31/2023 12:29 Category: Category I Datetime: 01/31/2023 12:21 COMMUNICATION Communication Comments: Dr.Baltes at bedside to discuss POC with Pt Datetime: 01/31/2023 12:16 Membranes Rupture Method: Spontaneous Amniotic Fluid Color: Clear Patient Care Comments: u0p to bathroom Datetime: 01/31/2023 11:03 Vaginal Bleeding: None Cervix, Consistency: Soft Cervix, Position: Posterior Datetime: 01/31/2023 11:01 MEDICATIONS Pitocin (milliunits): Increased to @ 6 Datetime: 01/31/2023 11:00 Monitor Interventions for UA: [place] Adjusted Datetime: 01/31/2023 07:19 Patient Position/Activity: Left Lateral; Low Fowlers Datetime: 01/31/2023 07:15 Contraction Comments: UC duration 150 sec is couplet that didn't return to resting tone between UCs Comments: Persistent periodic (end of UCs) mild luna decels noted. Position change done Datetime: 01/31/2023 06:55 Respirations: 18 Temperature (C): 36.8 PAIN Pain Scale: 3 Pain Presence: Intermittent Pain Type: Cramping; Contraction Pain Location: Abdomen Pain Goal: 7 Pain Coping: Talking Through Contractions Datetime: 01/31/2023 06:36 Medication Comments: Educ pt on pitocin, pt verb understanding. Pt declined to shower at this time , but does want to brush her teeth before pitocin is started. Will start pitocin after AM care Datetime: 01/31/2023 05:22 Bedside Blood Glucose: 82 Datetime: 01/31/2023 03:13 Pain Assessment Comments: POsition changed. Pt reports this is her baseline in late Datetime: 01/31/2023 01:48 Cervical Ripening Agents: Cytotec @ 50 Datetime: 01/31/2023 01:45 Monitor Interventions for FHR: Ultrasound Adjusted Datetime: 01/31/2023 01:42 LOWERY'S SCORE Dilatation (cm): 1-2 cm Effacement: 60-70_ effaced Station: minus 3 Consistency: Soft Position: Posterior Total Lowery's Score: 5 : 5-8 = Small percentage of induction failure Datetime: 01/31/2023 01:15 Actions for Decelerations: Side to Side; IV Bolus PATIENT CARE IV/Blood Work: New IV Bag Hung Datetime: 01/30/2023 19:40 TEACHING Instructional Method: Verbal; Patient Instructed Plan of Care: Plan of Care Discussed; Labor; Induction Unit Routine: Bed; Handwashing; Monitoring Labor/Induction: Activity Pain Management: Comfort Measures
== END 2023-02-01 17:00 | disposition home or self-care (01) | DRG 807 ==
LOC: WFO 15:45 → FBP 15:46 → WFO 16:36 → FBP 16:37
PROVIDERS: ADMIT Obstetrics & Gynecology Obstetrics; ATTEND Obstetrics & Gynecology Obstetrics
PROC: 3E0DXGC Introduction of Other Therapeutic Substance into Mouth and Pharynx, External Approach (ICD-10-PCS; 2023-01-30)
PROC: 10E0XZZ Delivery of Products of Conception, External Approach (ICD-10-PCS; principal; 2023-01-31)
PROC: 3E033VJ Introduction of Other Hormone into Peripheral Vein, Percutaneous Approach (ICD-10-PCS; 2023-01-31)
DX: O13.4 Gestational [pregnancy-induced] hypertension without significant proteinuria, complicating childbirth (principal); Z37.0 Single live birth; O24.425 Gestational diabetes mellitus in childbirth, controlled by oral hypoglycemic drugs; O69.81X0 Labor and delivery complicated by cord around neck, without compression, not applicable or unspecified; Z3A.38 38 weeks gestation of pregnancy; Z87.891 Personal history of nicotine dependence
CPT/HCPCS: 36415; 59409; 80053; 82570; 83615; 84156; 84550; 85027; 86850; 86900; 86901; 99215; A9270; J7120; 59025; 99213

== ENCOUNTER 2025-01-28 09:49 | Inpatient (IN) ==
[2025-01-28] MEDS ORDERED: METHYLERGONOVINE 0.2 MG/ML VIAL IM PRN (09:55)
[2025-01-28] MEDS ORDERED: hydrALAZINE INJ 20 MG/ML VIAL IVP PRN (09:55)
[2025-01-28] MEDS ORDERED: CALCIUM CARBONATE CHEW 500 MG TABLET PO PRN ×2 (09:55→20:07)
[2025-01-28] MEDS ORDERED: ACETAMINOPHEN 500 MG TABLET PO PRN ×2 (09:55)
[2025-01-28] MEDS ORDERED: OXYTOCIN 10 UNIT/ML VIAL IM PRN (09:55)
[2025-01-28] MEDS ORDERED: TERBUTALINE 1 MG/ML VIAL SUBQ PRN (09:55)
[2025-01-28] MEDS ORDERED: LABETALOL 20 MG/4 ML SYRINGE IVP PRN ×3 (09:55)
[2025-01-28] MEDS ORDERED: TRANEXAMIC ACID IN NACL 1,000 MG/100 ML BAG IV PRN (09:55)
[2025-01-28] MEDS ORDERED: fentaNYL 100 MCG/2 ML VIAL IVP PRN (09:55)
[2025-01-28] MEDS ORDERED: CARBOPROST TROMETHAMINE 250 MCG/ML VIAL IM PRN (09:55)
[2025-01-28] MEDS ORDERED: SODIUM CHLORIDE FLUSH 0.9% 10 ML SYRINGE IVP PRN (09:55)
[2025-01-28] MEDS ORDERED: METOCLOPRAMIDE 10 MG TABLET PO PRN (09:55)
[2025-01-28] MEDS ORDERED: ONDANSETRON ODT 4 MG TABLET PO PRN (09:55)
[2025-01-28] MEDS ORDERED: LACTATED RINGERS 1,000 ML IV PRN (09:55)
--- NOTE | 2025-01-28 09:58 | HISTORY & PHYSICAL EXAMINATION ---
Admit History Smoking Status: Former smoker Other Maternal History Other Maternal History: Patient is a 39-year-old G4, P2 at 38 weeks 2 days gestation presenting for induction of labor secondary to chronic hypertension, also with advanced maternal age and oral hyperglycemic controlled gestational diabetes. She consents to induction of labor today.. She has good movement. Denies loss of fluid. No MAZARIEGOS/BV or RUQP. No vaginal bleeding. Denies nausea and vomiting. Denies urinary urgency or dysuria. All other symptoms reviewed and were negative except per HPI. Course In the event of an emergency, ACCEPTS the administration of blood products G OB hx: G1: 10/04/2019 @ 38 weeks, epidural, F- "[facility], GDM/PreE (MgSO4) G 01/31/2023 @ 37 weeks, epidural, F, WHFBP, GDM/gestational hypertension (metformin), IOL misoprostol x3 G3:SAB 5-6 weeks G4: Current /FOB: [facility] Hx: Hx of gestational hypertension and GDM (previously managed on metformin/declined insulin as first line management), significant anxiety and depression (managed without medication) Surgical Hx: None Social Hx: Former smoker. Monogamous with male partner. Denies current use of alcohol or tobacco, marijuana or other recreational drugs. Reports that she is safe in current relationship. Family Hx: M- Breast Cancer 40's, PGM- Breast Cancer, MGM- Colon CA 80s, F- Prostate Ca. Denies family history of congenital anomalies, Cystic Fibrosis or chromosomal abnormalities Problems: History of GDM, preE, gestational hypertension, AMA, LDASA @ 12 weeks, elevated BP x1 prior to 20 weeks gestation (as of 07/11/2024) -Gestational Diabetes A2GDM. -Started Insulin CONSULTATION: Chronic hypertension/hx of preE (not on medication) and GDM switched to insulin at 35 weeks NSTs starting at 32 weeks Monthly growth scans Allergies: NKDA Medications: PNV, LDASA, metformin, labetalol LMP:04/13/2024 FABIEN by LMP: 01/18/2025 U/S: 06/18/2024 not c/w lmp Final FABIEN: 02/09/2025 Pre- weight: 154 BMI: 28.5 Blood type: B+ Antibody screen: CBC: PLT 269 13.3/38.4 Rubella: Immune VZV: Immune HBsAg: Negative HepC: NR RPR/AB-EIA: NR HIV: Flu: COVID: PAP: 2022 NILM/HPV negative hx- 2016 LSIL, colposcopy (no BEATRIZ) GC/CT: negative HSV: denies in self and partner. Genetic Testin07/11/2024 ([employer]) Negative, AFP-declined FAS: 09/30/2024 Placenta: Anterior Cord: 3VC LISA: 16.8 EFW: 369g; 22%tile *50gm GCT: 208 - diagnosed GDM TDAP: 11/26 Breast Pump: 11/26 3rd trimester H/H PLT 12.9/37.4; 311 3rd trimester RPR: NR RSV: 01/16 GBS: 01/16 pending Delivery plan: contraception: mini pill while , to get vasectomy Meds/Allgy Home Medications Ambulatory Orders Medication Instructions Recorded Confirmed vits 75-iron 28 mg-folic 1 pkg PO DAILY 02/1401/28/25 acid 800 mcg-omega3 440 mg oral pack (One Daily ) blood sugar diagnostic #100 ea 11/01/24 01/28/25 blood-glucose meter #1 ea 11/01/24 01/28/25 lancets #200 ea 11/01/24 01/28/25 labetalol 100 mg tablet 100 mg PO BID #60 tabs 12/2001/28/25 pen needle, diabetic 32 gauge x #100 ea 01/08/2501/28 5/16" (Comfort EZ Pen [place]) aspirin 81 mg chewable tablet 81 mg PO DAILY 01/28/25 01/28/25 (Aspirin Childrens) metformin 500 mg tablet,extended 1,000 mg PO QPM 01/2801/28/25 release 24 hr (Glucophage XR) Allergies Allergies Allergy/AdvReac Type Severity Reaction Status Date / Time No Known Drug Allergies Allergy Verified 01/16/25 13:08 PFSH Active Problems All Active Problems (Updated 01/28/25 @ 18:54 by Demetrius Rothman MD) 38 weeks gestation of (Acute) Oral hypoglycemic controlled White classification A2 gestational diabetes mellitus (GDM) (Acute) Chronic hypertension affecting (Acute) Anxiety associated with depression (Acute) in multigravida (Acute) History of gestational diabetes (Acute) History of pre-eclampsia in prior , currently (Acute) Advanced maternal age during (Acute) Normal in multigravida in first trimester (Acute) FH: breast cancer in first degree relative when <50 years old (Acute) depression (Acute) Medical History Medical History (Updated 01/28/25 @ 18:54 by Demetrius Rothman MD) Encounter for fertility planning Missed of unknown anatomic location Positive test Family History Family History (Updated 02/15/24 @ 14:42 by Milly Austin MA) Paternal grandmother Breast cancer Mother Breast cancer Maternal grandmother Colon cancer Father Prostate cancer Social History Social History (Updated 11/27/24 @ 00:04 by Mariel Ross CNM, CERAMICS TECHNICIAN) Smoking Status: Never smoker Do you dip or chew tobacco?: No Patient requests smoking cessation consult: No Initiate information on smoking cessation: No Review of Systems Status of ROS: 10 or more systems reviewed and unremarkable except as noted in history and below Physical Other Notes Labor Progress Note/Additional Text: General: Alert, oriented, no acute distress Head: Normal cephalic atraumatic Eyes: PERRLA, extraocular motions intact. Respiratory: Normal rate of respiration. No accessory muscle use, normal respiratory effort. Abdomen: Gravid, nontender, nondistended Extremities: Normal range of motion Neuro: Oriented x3. Normal movements Psych: Appropriate mood and affect. Normal judgment and insight SVE:3/50/-2 FHT: 140 bpm baseline, moderate variability, accelerations present, no decelerations. BPM baseline, moderate variability, accelerations present, no decelerations. [place]: Quiescent Plan for Labor Plan For Labor I expect patient to be DC'd or transferred within 96 hours.: Yes Conclusion/Plan Problem List (1) Chronic hypertension affecting : Plan: Had mentality, after labs, epidural at patient's request. Anticipate AROM, anticipate . Will start induction with oxytocin. Continue home labetalol. Will monitor blood sugars. (2) 38 weeks gestation of : (3) Oral hypoglycemic controlled White classification A2 gestational diabetes mellitus (GDM): (4) Advanced maternal age during : Lab Results 01/28/25 11:00 01/28/25 11:00
[2025-01-28] MEDS ORDERED: SODIUM CHLORIDE FLUSH 0.9% 10 ML SYRINGE IVP SCH (10:00)
[2025-01-28] MEDS: LABETALOL 100 MG TABLET PO SCH (10:41)
[2025-01-28 11:24] LABS: HCT - HEMATOCRIT 36.9 % (37.0-47.0); HGB - HEMOGLOBIN 13.0 g/dL (12.0-16.0); MEAN PLATELET VOLUME 9.7 fL (7.9-10.8); NRBC ABSOLUTE COUNT (AUTO) 0.00 x10^3/uL; NUCLEATED RED BLOOD CELLS AUTO 0.0 /100WBC; PLT - PLATELET COUNT 273 10^3/uL (130-450); RED CELL DISTRIBUTION WIDTH 13.1 % (12.0-15.0)
[2025-01-28] MEDS: LACTATED RINGERS 1,000 ML IV SCH (11:25)
[2025-01-28] MEDS: OXYTOCIN/SODIUM CHLORIDE 500 ML IV SCH (11:25)
[2025-01-28 12:09] LABS: ALT ALANINE AMINOTRANSFERASE 11.0 IU/L (10-60); AST ASPARTATE AMINOTRANSFERASE 17.0 IU/L (10-42); BUN - BLOOD UREA NITROGEN 9.0 mg/dL (6-20); CARBON DIOXIDE - CO2 23.0 mmol/L (21-32); CREATININE 0.5 mg/dL (0.6-1.3); GFR - MDRD 137.0 (>89)
[2025-01-28 12:12] LABS: TOTAL PROTEIN,URINE TIMED 9.0 mg/dL
--- NOTE | 2025-01-28 14:16 | PHARMACY PROGRESS NOTE ---
Best Possible Medication History Admit Date and Time: 01/28/25 1028 Home Medications Medication Instructions Recorded Confirmed Type vits 75-iron 28 mg-folic 1 pkg PO DAILY 02/1401/28/25 History acid 800 mcg-omega3 440 mg oral pack (One Daily ) blood sugar diagnostic #100 ea 11/01/24 01/28/25 Rx blood-glucose meter #1 ea 11/01/24 01/28/25 Rx lancets #200 ea 11/01/24 01/28/25 Rx labetalol 100 mg tablet 100 mg PO BID #60 tabs 12/2001/28/25 Rx pen needle, diabetic 32 gauge x #100 ea 01/08/2501/28 Rx 5/16" (Comfort EZ Pen [place]) aspirin 81 mg chewable tablet 81 mg PO DAILY 01/28/25 01/28/25 History (Aspirin Childrens) metformin 500 mg tablet,extended 1,000 mg PO QPM 01/2801/28/25 History release 24 hr (Glucophage XR) Processed by: Pharmacy (Medication reconciliation completed by Orthopedic Shoe FitterEdvin) Medications reviewed in ED?: No Medication History completed: Yes Patient Interview: Completed Secondary Source(s): Insurance records [facility] Statement: As the person ultimately responsible for medication therapy, providers are able to order a medication from an existing home medication list in [facility] via the "Reconcile Routine" prior to Confirmation of that medication by product support technician. Such practice is discouraged except when the physician, in their clinical judgment, deems that a medical need exists for a medication without regard to previous use.
--- NOTE | 2025-01-28 14:37 | ANESTHESIA PROCEDURE NOTE ---
Pre-Anesthesia VS, & Labs Diagnosis Surgical Diagnosis:: term labor pain Procedure Procedure: epidural for NPO Last Fluid Intake: t/o day Last Food Intake: lunch Is Patient ?: Yes Lab Results Current Lab Results: Laboratory Tests 01/28/25 11:00: WBC 8.1, RBC 4.20, Hgb 13.0, Hct 36.9 L, MCV 87.9, MCH 31.0, MCHC 35.2, RDW 13.1, Plt Count 273, MPV 9.7, Neut # (Auto) 5.7, Lymph # (Auto) 1.8, Lynn # (Auto) 0.4, Eos # (Auto) 0.0, Baso # (Auto) 0.1, Absolute Nucleated RBC 0.00, Nucleated RBC % 0.0, Sodium 137, Potassium 4.0, Chloride 106, Carbon Dioxide 23, Anion Gap 8.0, BUN 9, Creatinine 0.5 L, Estimated GFR (MDRD) 137, Glucose 94, Calcium 9.1, Total Bilirubin 0.6, AST 17, ALT 11, Alkaline Phosphatase 136 H, Total Protein 6.3 L, Albumin 3.6, Globulin 2.7, Albumin/Globulin Ratio 1.3, Blood Type B POSITIVE, Antibody Screen NEGATIVE Lab results reviewed: Yes 01/28/25 11:00 01/28/25 11:00 Meds/Allgy Home Medications Ambulatory Orders Medication Instructions Recorded Confirmed vits 75-iron 28 mg-folic 1 pkg PO DAILY 02/1401/28/25 acid 800 mcg-omega3 440 mg oral pack (One Daily ) blood sugar diagnostic #100 ea 11/01/24 01/28/25 blood-glucose meter #1 ea 11/01/24 01/28/25 lancets #200 ea 11/01/24 01/28/25 labetalol 100 mg tablet 100 mg PO BID #60 tabs 12/2001/28/25 pen needle, diabetic 32 gauge x #100 ea 01/08/2501/28" (Comfort EZ Pen [place]) aspirin 81 mg chewable tablet 81 mg PO DAILY 01/28/25 01/28/25 (Aspirin Childrens) metformin 500 mg tablet,extended 1,000 mg PO QPM 01/2801/28/25 release 24 hr (Glucophage XR) Allergies Allergies Allergy/AdvReac Type Severity Reaction Status Date / Time No Known Drug Allergies Allergy Verified 01/16/25 13:08 PFSH Active Problems All Active Problems (Updated 01/22/25 @ 11:53 by Demetrius Rothman MD) Oral hypoglycemic controlled White classification A2 gestational diabetes mellitus (GDM) (Acute) Chronic hypertension affecting (Acute) Anxiety associated with depression (Acute) in multigravida (Acute) History of gestational diabetes (Acute) History of pre-eclampsia in prior , currently (Acute) Advanced maternal age during (Acute) Normal in multigravida in first trimester (Acute) FH: breast cancer in first degree relative when <50 years old (Acute) depression (Acute) Medical History Medical History (Updated 01/22/25 @ 11:53 by Demetrius Rothman MD) Encounter for fertility planning Positive test of unknown anatomic location Missed Family History Family History (Updated 02/15/24 @ 14:42 by Milly Austin MA) Paternal grandmother Breast cancer Mother Breast cancer Maternal grandmother Colon cancer Father Prostate cancer Social History Social History (Updated 11/27/24 @ 00:04 by Mariel Ross CNM, PRESS BRAKE OPERATOR) Smoking Status: Never smoker Do you dip or chew tobacco?: No Patient requests smoking cessation consult: No Initiate information on smoking cessation: No Anesthesia Exam (Expanded) Exam General: Alert, Oriented x3, Cooperative and No acute distress Dental: WNL Mouth Openin Fingerbreadth Neck Mobility: Normal Mallampati classification: II Respiratory: No respiratory distress Cardiovascular: Regular rate Neurological: Normal speech Mental/Cognitive Status: Alert/Oriented X3 and Normal for patient Cognitive Status: Within normal limits Plan Plan Anesthesia Type: Epidural Consent for Procedure(s) Verified and Reviewed: Yes Code Status: Attempt Resuscitation ASA Classification ASA classification: 2-Mild systemic disease Is this case an emergency?: No
[2025-01-28] MEDS ORDERED: ROPIVACAINE 0.2% 200 MG/100 ML BAG EP ONE (17:50)
[2025-01-28] MEDS ORDERED: ONDANSETRON 4 MG/2 ML VIAL IVP PRN ×2 (18:24→20:07)
[2025-01-28] MEDS ORDERED: METOCLOPRAMIDE 10 MG/2 ML VIAL IVP PRN (18:24)
[2025-01-28] MEDS ORDERED: NALOXONE 0.4 MG/ML VIAL IVP PRN (18:24)
[2025-01-28] MEDS ORDERED: NALBUPHINE 10 MG/ML AMP IVP PRN (18:24)
[2025-01-28] MEDS ORDERED: ePHEDrine 50 MG/ML VIAL IVP PRN (18:24)
[2025-01-28] MEDS ORDERED: ROPIVACAINE 0.2% 200 MG/100 ML BAG EP PRN (18:24)
[2025-01-28] MEDS ORDERED: LACTATED RINGERS 500 ML IV ONE (18:24)
--- NOTE | 2025-01-28 18:55 | PROVIDER PROGRESS NOTE ---
Labor Progress Note Labor Progress Note Labor Progress Note/Additional Text: /-2. After discussion, patient agrees to AROM. Moderate amount of clear fluid. Patient still uncomfortable despite epidural. Will reevaluate. heart tracin beats per baseline, moderate variability, accelerations pres ent, no decelerations. [place]: 2 to 4 minutes. Oxytocin currently at 20 milliunits/min.
[2025-01-28] MEDS ORDERED: DEXMEDETOMIDINE 200 MCG/2 ML VIAL ONE (19:51)
[2025-01-28] MEDS ORDERED: BUPIVACAINE 0.25% PF 10 ML VIAL ONE (19:51)
[2025-01-28] MEDS ORDERED: WITCH HAZEL/GLYCERIN 1 PAD TOP PRN (20:07)
[2025-01-28] MEDS ORDERED: SIMETHICONE CHEW 80 MG TABLET PO PRN (20:07)
--- NOTE | 2025-01-28 20:07 | DELIVERY NOTE ---
OB Labor and Delivery Note Labor Labor: Augmented by ARM and Induced by oxytocin Delivery Method Delivery Method: Spontaneous vaginal delivery Presentation Presentation: Vertex Nuchal Cord Nuchal Cord: None Amniotic Fluid Description Amniotic Fluid Description: Clear Laceration Laceration: Periurethral : Placed in direct skin contact with mother Cord Cord: 3 vessels Placenta Placenta: Intact Estimated Blood Loss Estimated Blood Loss (in cc): 250 Delivery Comments (Free Text/Narrative) Delivery Comments (Free Text/Narrative): Preoperative Diagnoses 38 weeks gestation Advanced maternal age Chronic hypertension Gestational diabetes managed with oral antihyperglycemics Postoperative Diagnoses Same Delivery of live ren Status post spontaneous vaginal delivery Summary Patient presented at 38 weeks gestation for chronic hypertension. She had a favorable cervix upon arrival and was started on oxytocin. This progressed until regular contractions every 2 to 3 minutes then received an epidural. She then have amniotomy with clear fluid. She quickly progressed until complete and pushing. Delivery Summary: Patient was placed in the dorsal lithotomy position. Upon maternal pushing the head was delivered atraumatically followed by the anterior shoulder, posterior shoulder, then the remainder of the 's body. A female was delivered with APGARS of 8 at 1 minute and 9 at 5 minutes. The was placed on its mother's chest . After the cord finished pulsating, the umbilical cord was clamped times two and cut. The placenta delivered intact with three vessel cord. Placenta was not sent to pathology. Oxytocin was administered. Uterine massage was performed until uterus was deemed firm. Upon inspection the perineum, she had a small DIANE urethral/periclitoral laceration that was hemostatic with pressure. Upon re-inspection the patient was hemostatic. Uterus again massaged and found to be firm. Needle and sponge counts were correct. Patient was stable and allowed to recover in L&D room. Infant was stable and remained in room with mother. weight is pending at this time.
[2025-01-28] MEDS: OXYTOCIN/SODIUM CHLORIDE 500 ML IV PRN (20:10)
[2025-01-28] MEDS ORDERED: LACTATED RINGERS 1,000 ML IV SCH (21:00)
[2025-01-28] MEDS: ACETAMINOPHEN 500 MG TABLET PO SCH (21:12)
[2025-01-29] MEDS: IBUPROFEN 600 MG TABLET PO SCH (00:12)
[2025-01-29] MEDS ORDERED: FAMOTIDINE 20 MG/2 ML VIAL IVP SCH (09:00)
[2025-01-29] MEDS: DOCUSATE SODIUM 100 MG CAPSULE PO PRN (09:02)
[2025-01-29 13:00] VITALS: O2SAT 98
--- NOTE | 2025-01-29 18:08 | Discharge Summary ---
Discharge Summary Admit Date: 01/28/25 Discharge Date: 01/29/25 Discharging Provider: John Chacon MD HOSPITAL COURSE Hospital Course: Admission Diagnosis: - SIUP at 38w2d - A2DM on metformin - Chronic hypertension on labetalol 100mg BID Discharge Diagnosis: - Same, delivered Procedures: IOL Hospital Course: Kristy is a 39 yo who presented at 38w2d for IOL in the setting of chronic hypertension on labetalol 100mg BID and A2DM on metformin. Labor was induced with pitocin folllowed by amniotomy and she had an uncomplicated with an EBL of 250cc. course uncomplicated. Condition on Discharge: SUBJECTIVE: day 1 She feels well, would like to go home this evening if possible. Pain is well controlled with current medications. The baby is doing well. Baby is feeding via breast feeding. She is ambulating well, tolerating normal diet, urinating without difficulty. Lochia is reported as light. OBJECTIVE: Vital signs reviewed GENERAL: NAD CHEST: non labored respirations ABD: soft, non tender, fundus firm EXT: 1+ lower extremity edema; No evidence of DVT LAB & IMAGING STUDIES: See below PLAN: Plan for discharge home with follow up in clinic as scheduled on Monday. Reviewed home care instructions and medications. Patient counseled regarding signs and symptoms of infection, excessive bleeding, vaginal rest and activity restrictions. We discussed home blood pressure monitoring, recommended that she take BP at home at least twice daily. Encouraged her to call us if values are greater than 140/90 or to present to ED with numbers > 160/110 or symptoms of severe preeclampsia. She will continue taking labetalol 100mg BID. Contraceptive plans to be formalized at visit, currently planning for POPs and possibly partner vasectomy. Discussed that additional support is available in our clinic if needed. ALLERGIES Allergies Allergy/AdvReac Type Severity Reaction Status Date / Time No Known Drug Allergies Allergy Verified 01/16/25 13:08 MEDICATIONS Ambulatory Orders Medication Instructions Recorded Confirmed vits 75-iron 28 mg-folic 1 pkg PO DAILY 02/1401/28/25 acid 800 mcg-omega3 440 mg oral pack (One Daily ) labetalol 100 mg tablet 100 mg PO BID #60 tabs 12/2001/28/25 PHYSICAL EXAM AT DISCHARGE Vital Signs: Vital Signs x48h Temp Pulse Resp BP Pulse Ox 10/22/25 17:46 71 17 129/71 01/29/25 15:26 15 132/70 H 01/29/25 12:41 98.2 F 75 17 137/71 H 98 01/29/25 10:48 98.1 F 82 15 133/73 H 97 LABS 01/28/25 11:00 01/28/25 11:00 Discharge Plan Discharge Patient Disposition: Home, Self Care Prescriptions: Continued labetalol 100 mg tablet 100 mg PO BID Qty: 60 2RF One Daily 28-800-440 mg-mcg-mg combo pack 1 pkg PO DAILY Discontinued (DME) blood-glucose meter Kit See Rx Instructions .ROUTE .MEDSUPPLY Qty: 1 0RF Rx Instructions: 4 times per day as directed (DME) lancets Misc See Rx Instructions .ROUTE .MEDSUPPLY Qty: 200 4RF Rx Instructions: 4 times per day as directed (DME) blood sugar diagnostic Strip See Rx Instructions .ROUTE .MEDSUPPLY Qty: 100 4RF Rx Instructions: 4 times per day via meter as directed metformin [Glucophage XR] 500 mg tablet extended release 24 hr 1,000 mg PO QPM Rx Instructions: Start with one pill once a day at night then increase to two pills once a day at night after one week. aspirin [Aspirin Childrens] 81 mg tablet,chewable 81 mg PO DAILY Rx Instructions: begin at 12 weeks gestation (DME) pen needle, diabetic [Comfort EZ Pen [place]] 32 gauge x 5/16" needle See Rx Instructions .Route Qty: 100 0RF Rx Instructions: As directed to inject insulin Print Language: Lithuanian Patient Instructions: After a Vaginal , Eclampsia After Childbirth, Breast Care After Follow-up Care: Demetrius Rothman MD [Provider Admit Priv/Credential, Obstetrics/Gynecology] Vitals documented within 30 minutes of discharge?: Yes
[2025-01-29 23:05] VITALS: BP 132/62; TEMP 98.8
--- NOTE | 2025-01-30 00:57 | Labor Flowsheet ---
Labor Flowsheet Datetime Report Generated by CPN: 01/30/2025 00:56 Datetime: 01/29/2025 22:02 VITAL SIGNS NBP Sys/Marsha/Mean (mmHg): 134 : 62 : 80 Pulse: 67 Datetime: 01/29/2025 07:00 Stage of : Datetime: 01/28/2025 21:58 SpO2 (%): 97 Datetime: 01/28/2025 21:51 Patient Position/Activity: Supine Patient Care Comments: pt reporting dizziness. Repositioned supine. Cold cloth on forehead Datetime: 01/28/2025 20:44 LaborFlag: Labor Datetime: 01/28/2025 20:29 PAIN Pain Scale: 0 Datetime: 01/28/2025 20:04 Membranes Ruptured Date/Time: 01/28/2025 18:40 Datetime: 01/28/2025 19:47 UTERINE ACTIVITY Monitor Mode: External Frequency (min): q2 pushing Duration (sec): pushing ASSESSMENT A Monitor Mode: External US FHR Baseline Rate : 130 Variability: Moderate 6-25 bpm Accelerations: 15X15 Decelerations: Early Datetime: 01/28/2025 19:39 VAGINAL EXAM Dilatation (cm): 10.0 Effacement (%): 100 Station: 3 Exam by: Stephan MD Datetime: 01/28/2025 19:36 COMMUNICATION Communication: Provider at Bedside Communication Comments: DIGITAL PRODUCER at bs to eval pt pain. Dago MD at bs for SVE Datetime: 01/28/2025 19:30 MATERNAL ASSESSMENT Level of Consciousness: Alert DTR's/Clonus: DTRs 2+; No Clonus Headache: Denies Breath Sounds, Left: Clear and Equal Breath Sounds, Right: Clear and Equal Nausea/Vomiting: Denies RUQ Epigastric Pain: Denies Datetime: 01/28/2025 19:24 Temperature (C): 36.6 Temperature Route: Oral Datetime: 01/28/2025 19:01 Quality: Mild Pattern: Normal: <= 5 Contractions in 10 Minutes Resting Tone (Palpate): Relaxed Pitocin Checklist: At Least 1 Acceleration of 15 bpm x 15 Seconds in 30 Minutes or Adequate Variability; No More than 1 Late Deceleration Occurred in Past 30 Minutes; No More than 2 Variable Decelerations > 60 Seconds in Duration and decreasing >60 bpm in 30 minutes; No More than 5 Uterine Contractions in 10 Minutes for any 20 Minute Interval; Uterus Palpates Soft between Contractions Actions for Decelerations: Side to Side PATIENT CARE Oxygen Method: Room Air Datetime: 01/28/2025 18:42 Anesthesia Comments: DIGITAL PRODUCER at bedside bolusing pt-epidural effective on right side, left side not effective. Datetime: 01/28/2025 18:39 Membranes Rupture Method: Artificial Amniotic Fluid Color: Clear Amniotic Fluid Amount: Small Amniotic Fluid Odor: Normal Datetime: 01/28/2025 18:30 Monitor Interventions for UA: [place] Adjusted Datetime: 01/28/2025 18:00 Epidural Procedure: Test Dose Datetime: 01/28/2025 17:54 PROCEDURE TIME OUT Procedure Verify: Correct Patient Identity; Correct Side and Site are Marked; Accurate Procedure Consent Form; Agreement on Procedure to be Done; Correct Patient Position ANESTHESIA Anesthesia Plans: Epidural Epidural Positioning: Sitting Datetime: 01/28/2025 17:25 I/O Interventions: Up to BR Datetime: 01/28/2025 16:53 Monitor Interventions for FHR: Ultrasound Adjusted Datetime: 01/28/2025 15:35 Cervix, Consistency: Soft Cervix, Position: Posterior Datetime: 01/28/2025 14:33 Respirations: 16 Datetime: 01/28/2025 12:08 Pain Presence: None/Denies
== END 2025-01-29 22:20 | disposition home or self-care (01) | DRG 807 ==
LOC: WFO 09:49 → FBP 09:49
PROVIDERS: ADMIT Obstetrics & Gynecology; ATTEND Obstetrics & Gynecology
DX: Z37.0 Single live birth; O10.92 Unspecified pre-existing hypertension complicating childbirth; Z3A.38 38 weeks gestation of pregnancy; O71.82 Other specified trauma to perineum and vulva; Z87.891 Personal history of nicotine dependence; O24.425 Gestational diabetes mellitus in childbirth, controlled by oral hypoglycemic drugs